=== PATIENT | female | born 1950 | race Caucasian/White ===

== ENCOUNTER 2018-03-09 12:56 | Inpatient (IN) ==
[2018-03-09 14:56] LABS: Hematocrit (blood only) 17.7 % (37-47); Hemoglobin 5.6 g/dL (12.0-16.0); Mean Corpuscular Hgb Conc 31.6 g/dL (32-36); Mean Corpuscular Volume 89.8 fL (80-100); Mean Platelet Volume 9.3 fL (7.4-10.4); Platelet Count 319 K/uL (130-400); RDW Coefficient of Variation 17.8 % (11.5-14.5); RDW Standard Deviation 57.9 fL (36.4-46.3); Red Blood Count 1.97 M/uL (4.2-5.4); White Blood Count 9.33 K/uL (4.8-10.8)
[2018-03-09 14:59] LABS: Alanine Aminotransferase 19 U/L (12-78); Aspartate Aminotransferase 11 U/L (15-37); BUN Creatinine Ratio 30.2 (10-20); Blood Urea Nitrogen 27 mg/dl (7-18); Calcium 8.4 mg/dl (8.5-10.1); Carbon Dioxide 24 mmol/L (21-32); Chloride 103 mmol/L (98-107); Creatinine Clr Calc Pharmacy 70.7 ml/min; Est GFR (African American) 79.9; Est GFR (Non-African American) 68.9; Glucose 253 mg/dl (70-99); Potassium 4.2 mmol/L (3.5-5.1); Sodium 136 mmol/L (136-145)
[2018-03-09 15:03] LABS: Albumin Globulin Ratio 0.9 (0.9-2); Alkaline Phosphatase 68 U/L (45-117); Bilirubin,Total 0.3 mg/dl (0.1-1); Globulin 3.3 gm/dl (2.5-4.0); Total Protein 6.3 gm/dl (6.4-8.2); Troponin I < 0.015 ng/ml (0-0.045)
[2018-03-09] MEDS ORDERED: SODIUM CHLORIDE 0.9% 250 ML IV PRN ×2 (15:13→19:04)
[2018-03-09 15:14] LABS: Basophils # (auto) 0.02 K/uL (0-0.2); Basophils % (auto) 0.2 %; Eosinophils # (auto) 0.04 K/uL (0-0.5); Eosinophils % (auto) 0.4 %; Hypochromasia Present; Immature Granulocytes # (auto) 0.04 K/uL (0.00-0.02); Immature Granulocytes % (auto) 0.4 %; Lymphocytes # (auto) 2.03 K/uL (1.2-3.4); Lymphocytes % (auto) 21.8 %; Monocytes # (auto) 0.68 K/uL (0.11-0.59); Monocytes % (auto) 7.3 %; Neutrophils # (auto) 6.52 K/uL (1.4-6.5); Neutrophils % (auto) 69.9 %; Polychromasia 1+
--- NOTE | 2018-03-09 15:31 | XRay Report ---
XR chest 1V portable HISTORY: 67 years-old Female Anemia acute anemia COMPARISON: None available TECHNIQUE: Portable AP view of the chest FINDINGS: Surgical clips project over the epigastric distribution. Cardiomediastinal and hilar silhouettes are within normal limits. There is no pneumothorax, pleural effusion, focal airspace consolidation or ove rt pulmonary edema. Degenerative changes noted about the shoulders and spine. Calcification of the th oracic aortic arch. IMPRESSION: No acute process. The above report was generated using voice recognition software. It may contain grammatical, syntax o r spelling errors. Electronically signed by: Kurt Schrader M.D. 03/09/2018 3:29 PM
--- NOTE | 2018-03-09 15:39 | Emergency Department Note ---
ED Visit Note Patient seen in conjunction with Dr. Interiano .
--- NOTE | 2018-03-09 17:07 | History & Physical Report ---
Date of Service March 09, 2018 Assessment & Plan (1) Upper GI bleed: This is a 67-year-old white female with significant past medical history of T2 DM, HLD, history of gastric bypass 2010, history of ovarian CA 2015 who presents to [facility] at the recommendation of her online marketing specialist secondary to abnormal lab work. Hemoglobin today was 6.1 in outpatient setting. technician terminal and repeater, Dr. Ro advised patient seek ED. She is traveling to [place] from [place], [place] for holidays. H/H on arrival was 5.6/17.7. FOBT +. She was ordered 3 units of PRBC for transfusion. -admit to telemetry -proceed with 3 units PRBC, with lasix 20mg IV in between unit 2 and 3 -currently hemodynamically stable -NPO after midnight, start D5 1/2 NS at 0000 12/25 -clear liquid diet until midnight -Protonix bolus/gtt -GI Dr. Shukla consulted -Hold ASA, plavix -H/H q4h -CMP in a.m. (2) Anemia: -Plan as above -H/H 5.6/17.7 -H/H q4hr -3 units PRBC ordered (3) Left carotid artery stenosis: -recently diagnosed, following Dr. Ro [facility] interventional cardiology -to undergo eventual intervention -recently placed on Plavix/ASA (plavix initiated 03/02, ASA initiated 02/23) -will hold plavix and ASA in setting of acute GIB and profound anemia -continue zetia (4) T2DM (type 2 diabetes mellitus): -A1C in a.m, patient notes last A1C 11/2017 6.8-7.0 -hold actos, glimepride -Lantus/Novolog per protocol -on lisinopril for renal protection (5) Elevated blood pressure reading: -blood pressure consistently 140-160 in ED -may be in setting of GIB/anxiety -she denies hx of HTN, on MADELYN for T2DM -monitor blood pressure accordingly, goal for patient is 130/80 given T2DM (6) HLD (hyperlipidemia): -continue zetia (7) DVT prophylaxis: -SCDS/TEDS -hold ASA/Plavix in setting of GIB Disposition: D/C to home when medically able Follow up: with PCP Dr. Carreno upon discharge and online marketing specialist Dr. Ro of [facility] Patient seen in collaboration with Dr. Reynolds, please see addendum History of Present Illness Chief Complaint: Abnormal blood work reported by manager occupational Primary Care Provider: UMANG CARRENO This is a 67-year-old white female with significant past medical history of T2 DM, HLD, history of gastric bypass 2010, history of ovarian CA 2015 who presents to [facility] at the recommendation of her online marketing specialist secondary to abnormal lab work. Patient resides in [place], [place] and has recently been followed by online marketing specialist Dr. Ro secondary to left carotid artery stenosis. She is currently undergoing workup for KATHARINE intervention. Approximately 1 week ago patient was placed on Plavix 75 mg daily, ASA 325 mg daily. After 2 days of low-dose aspirin her dose was reduced to 81 mg daily. Patient was in her normal state of health until 03/05 when she developed diarrhea times 2 days, noted stools to be, "dark." After development of diarrhea she began experiencing increasing fatigue, exhaustion with simple activity, SALDA[place]A, lightheadedness with standing, decreased appetite, melena. Due to symptoms she contact her manager occupational who ordered a CBC for her today. Her hemoglobin was noted to be 6.1 and she received a call from her manager occupational and urged her to seek ED. Patient currently is visiting family in [facility]. She denies any fever, chills, sweats, syncope, chest pain, palpitations, shortness breath at rest, hemoptysis, nausea, vomiting, abdominal pain, dysuria, increased urgency or frequency with urination, hematuria, hematochezia. is at bedside. Follows closely with her material reclaimer regularly given gastric bypass. No hx of EGD but colonoscopy was done 07/2017 WNL. Allergies Allergy/AdvReac Type Severity Reaction Status Date / Time Penicillins Allergy Swelling Unverified 03/09/18 14:50 of Lip/Tongue/Throat Wpxudux-Vrk-Dia Reductase Allergy Unknown Unverified 03/09/18 14:50 Inhibitor STEROID AdvReac Anxiety Uncoded 03/09/18 14:50 Home Medications Home Medications Medication Instructions Recorded Confirmed Type alpha lipoic acid 50 mg PO DAILY 03/09/18 03/09/18 History aspirin [Aspirin Low Dose] 81 mg PO DAILY 03/09/18 03/09/18 History cholecalciferol (vitamin D3) 1,000 unit PO DAILY 03/09/18 03/09/18 History [Vitamin D3] clopidogrel [Plavix] 75 mg PO DAILY 03/09/18 03/09/18 History ezetimibe [Zetia] 10 mg PO DAILY 03/09/18 03/09/18 History glimepiride 4 mg PO DAILY 03/09/18 03/09/18 History lisinopril 5 mg PO DAILY 03/09/18 03/09/18 History magnesium oxide 400 mg PO DAILY 03/09/18 03/09/18 History pioglitazone [Actos] 15 mg PO DAILY 03/09/18 03/09/18 History Past Med/Surg History Medical History Left carotid artery stenosis History of ovarian cancer (Chronic) 2016 s/p GENET BSO HLD (hyperlipidemia) (Chronic) T2DM (type 2 diabetes mellitus) (Chronic) Morbid obesity Ovarian cancer (Resolved) Surgical History History of partial thyroidectomy (Resolved) History of Carlos-en-Y gastric bypass (Chronic) History of total abdominal hysterectomy and bilateral salpingo-oophorectomy ( Resolved) History of arthroscopy of knee (Resolved) History of tonsillectomy and adenoidectomy (Resolved) History of cataract extraction (Resolved) Family History Other Family history non-contributory No history of gastrointestinal disorder Social History marital status: Current Living Situation: Spouse current occupational status: retired Other Information That Helps Us Care for You: No Feels Safe at Home: Yes Safety Concerns: Feels Safe At This Time Smoking Status: Never smoker Hx Alcohol Use: No Hx Substance Use: No Beliefs That Will Affect Care: None Communication Ability: Effective Review of Systems All systems reviewed & are unremarkable except as noted in HPI & below Physical Exam 2 Vital Signs (Past 24 Hours): Last Vital Signs Temp 36.5 C 03/09/18 13:00 Pulse 87 03/09/18 15:30 Resp 16 03/09/18 15:30 BP 144/64 H 03/09/18 15:00 Pulse Ox 100 03/09/18 15:30 Physical Exam: Gen: WD/WN, F, NAD, sitting up in bed, pleasant, conversing easily Head: Normocephalic, Atraumatic Eyes: Sclera normal, no conjunctival injection, PERRLA, EOMI ENT: Gross hearing intact, normal pharynx, mucous membranes moist Neck: supple, no adenopathy, No JVD, no bruit, no thyromegaly, Resp: Clear to auscultation b/l, no wheeze, rales, rhonchi. Normal insp/exp effort, no accessory muscle use CV: Regular rate, regular rhythm, 2/6SEM noted best RUSB, no murmur, rub, gallop , or ectopy Abd: +BS x 4, soft, nontender, nondistended Musculoskeletal: moves extremities active rom x 4, strength intact, good tank hoop bender strength Extremities: No edema bilaterally, bilateral +2 pedal pulse Skin: warm, moist, no rash, negative turgor, cap refill < 2sec Neuro: Alert and oriented x 3, speech normal, good mood/affect, cran nerve 2-12 intact grossly : deferred Results & Data Laboratory Results Short CBC 03/09/18 Range/Units 13:25 WBC 9.33 (4.8-10.8) K/uL Hgb 5.6 L* (12.0-16.0) g/dL Hct 17.7 L* (37-47) % Plt Count 319 (130-400) K/uL BMP 03/09/18 13:25 Sodium 136 Potassium 4.2 Chloride 103 Carbon Dioxide 24 BUN 27 H Creatinine 0.88 Glucose 253 H Calcium 8.4 L Cardiac Enzymes 03/09/18 03/09/18 Range/Units 13:25 13:25 Troponin I < 0.015 Cancelled (0-0.045) ng/ml Liver Function 03/09/18 Range/Units 13:25 Total Bilirubin 0.3 (0.1-1) mg/dl AST 11 L (15-37) U/L ALT 19 (12-78) U/L Alkaline Phosphatase 68 (45-117) U/L Albumin 3.0 L (3.4-5.0) gm/dl Diagnostic Findings CXR: IMPRESSION: No acute process. Code Status & VTE Plan Code Status Full Code VTE Prophylaxis Plan VTE Prophylaxis will be ordered: Yes Reason for no VTE drug order: Contraindicated Supervising Physician Co-Signing Physician Notes delayed entry date of service 03/09/18 Attending Addendum: care coordinated with LILI Reyes please refer to her notes for full details, I agree with her notes patient seen and examined, records reviewed by myself as well on exam, patient seen resting in bed, comfortable, in good spirits states she feels fine overall denies active dyspnea, chest pain, dizziness, nausea no other symptoms VS noted and reviewed oriented x 3, not in distress, speaks in sentences with no effort nor accessory muscle use normal rate, regular rhythm, no murmurs clear breath sounds bilaterally non distended, soft, nontender no bipedal edema, erythema, warmth no neuro deficits Hg 5.6 Crea 0.88 ASSESSMENT AND PLAN PROFOUND ANEMIA r/o GI bleed in the setting of ASA and Plavix use history of Gastric Bypass Surgery -- 3 units of pRBC ordered Protonix drip NPO post midnight -- EGD tomorrow GI consulted HYPERTENSION -- continue Lisinopril monitor other diagnoses and plan of care as per LILI Jarquin notes Clarence Reynolds MD _ (1) T2DM (type 2 diabetes mellitus) Diabetes mellitus complication status: without complication Diabetes mellitus manager intermediate insulin use: without intermediate use Qualified Code(s): E11.9 - Type 2 diabetes mellitus without complications (2) Anemia Anemia type: other cause Other causes of anemia: acute posthemorrhagic Qualified Code(s): D62 - Acute posthemorrhagic anemia (3) HLD (hyperlipidemia) Hyperlipidemia type: unspecified Qualified Code(s): E78.5 - Hyperlipidemia, unspecified
[2018-03-09] MEDS ORDERED: PANTOprazole 80 MG in DEXTROSE 5% 100 ML IV ONE ×2 (17:16→18:30)
[2018-03-09] MEDS ORDERED: PANTOPRAZOLE BOLUS/DRIP 1 EA IV STA (17:16)
[2018-03-09] MEDS ORDERED: FUROSEMIDE 40 MG/4 ML VIAL IV SCH (17:30)
[2018-03-09] MEDS ORDERED: PANTOprazole 40 MG in DEXTROSE 5% 100 ML IV SCH (17:30)
[2018-03-09] MEDS ORDERED: MAGNESIUM HYDROXIDE SUSP 30 ML UDC PO PRN (19:04)
[2018-03-09] MEDS ORDERED: CARBOHYDRATES FOR HYPOGLYCEMIA PO PRN (19:04)
[2018-03-09] MEDS ORDERED: ALUMINUM/MAGNESIUM SUSP 30 ML UDC PO PRN (19:04)
[2018-03-09] MEDS ORDERED: ACETAMINOPHEN 325 MG TAB PO PRN (19:04)
[2018-03-09] MEDS ORDERED: ONDANSETRON INJ 2 MG/ML 2 ML VIAL IV PRN (19:04)
[2018-03-09] MEDS ORDERED: GLUCAGON FOR INJ 1 MG VIAL SQ PRN (19:04)
[2018-03-09] MEDS ORDERED: GLUCOSE 40% GEL 15 GM TUBE PO PRN (19:04)
[2018-03-09] MEDS ORDERED: DEXTROSE 50% 50 ML SYRINGE IV PRN (19:04)
[2018-03-09] MEDS ORDERED: POLYETHYLENE (MIRALAX) 17 GM PACK PO PRN (19:04)
[2018-03-09] MEDS ORDERED: GLUCOSE 10 TABS/TUBE PO PRN (19:04)
[2018-03-09] MEDS: PANTOprazole 40 MG in DEXTROSE 5% 100 ML IV SCH ×2 (19:18→23:55)
[2018-03-09] MEDS: INSULIN ASPART 100 UNITS/ML 3 ML PEN SC SCH ×2 (20:36→22:57)
[2018-03-09] MEDS: INSULIN GLARGINE SOLOSTAR 100 UNITS/ML 3 ML PEN SC SCH (20:39)
[2018-03-09] MEDS ORDERED: PANTOprazole 40 MG in SYRINGE 0 ML IV SCH (21:00)
[2018-03-10] MEDS ORDERED: D5W AND 1/2NSS 1,000 ML IV SCH
--- NOTE | 2018-03-10 02:15 | Emergency Department Note ---
Entered by Judah Contreras acting as a scribe for Gerardo Interiano MD History of Present Illness General Chief complaint: Abnormal Labs/Diagnostic Testing Stated complaint: LOW HEMOGLOBIN Time Seen by Provider: 03/09/18 14:00 Source: patient Limitations: no limitations History of Present Illness Location: head Pain Consistency: + constant Maximum Pain Intensity: 0 Quality: + constant Relieved By: + movement Associated symptoms: + loss of appetite, + weakness and + other (diarrhea) The patient is a 67 year old female who presents to the Emergency Room with complaints of weakness. The patient states she has been tired, has SOB, and her appetite has been down. She states she went to her PCP and got blood-work done. She states her PCP told her she had low hemoglobin levels and should visit the ED. She states she had diarrhea 4 days ago . She notes her last bowel movement was 2 days ago and it was small and darker than normal. The patient states she has been getting really tired when she moves around. The patient notes she has a history of ovarian cancer. She states she had left coronary artery stenosis in November. The patient states she has been put on baby aspirin and Plavix recently. Home Medications Home Medications Medication Instructions Recorded Confirmed Type alpha lipoic acid 50 mg PO DAILY 03/09/18 03/09/18 History aspirin [Aspirin Low Dose] 81 mg PO DAILY 03/09/18 03/09/18 History cholecalciferol (vitamin D3) 1,000 unit PO DAILY 03/09/18 03/09/18 History [Vitamin D3] clopidogrel [Plavix] 75 mg PO DAILY 03/09/18 03/09/18 History ezetimibe [Zetia] 10 mg PO DAILY 03/09/18 03/09/18 History glimepiride 4 mg PO DAILY 03/09/18 03/09/18 History lisinopril 5 mg PO DAILY 03/09/18 03/09/18 History magnesium oxide 400 mg PO DAILY 03/09/18 03/09/18 History pioglitazone [Actos] 15 mg PO DAILY 03/09/18 03/09/18 History Allergies Allergy/AdvReac Type Severity Reaction Status Date / Time Penicillins Allergy Swelling Unverified 03/09/18 14:50 of Lip/Tongue/Throat Gsyqlxs-Amu-Url Reductase Allergy Unknown Unverified 03/09/18 14:50 Inhibitor STEROID AdvReac Anxiety Uncoded 03/09/18 14:50 Past Med/Surg History Medical History Left carotid artery stenosis History of ovarian cancer (Chronic) 2016 s/p GENET BSO HLD (hyperlipidemia) (Chronic) T2DM (type 2 diabetes mellitus) (Chronic) Morbid obesity Ovarian cancer (Resolved) Surgical History History of partial thyroidectomy (Resolved) History of Carlos-en-Y gastric bypass (Chronic) History of total abdominal hysterectomy and bilateral salpingo-oophorectomy ( Resolved) History of arthroscopy of knee (Resolved) History of tonsillectomy and adenoidectomy (Resolved) History of cataract extraction (Resolved) Family History Other Family history non-contributory No history of gastrointestinal disorder Social History marital status: Current Living Situation: Spouse current occupational status: retired Other Information That Helps Us Care for You: No Feels Safe at Home: Yes Safety Concerns: Feels Safe At This Time Smoking Status: Never smoker Hx Alcohol Use: No Hx Substance Use: No Beliefs That Will Affect Care: None Communication Ability: Effective Review of Systems See HPI for pertinent positives & negatives. and A total of 10 systems reviewed and were otherwise negative Physical Exam Vital Signs Vital Signs - 24 hr 03/09/18 13:00 03/09/18 13:47 03/09/18 13:49 Temperature 36.5 C Temperature Source Oral Sepsis Recent Fever Within 48 Hours No Sepsis New/Unexplained Change in Mental Status No Sepsis Action Taken by Nursing No Action Required Pulse Rate 80 87 89 Pulse Rate [Left Finger] Pulse Rhythm Pulse Strength Respiratory Rate 22 20 16 Respiratory Effort / Characteristics Respiratory Depth Respiratory Pattern Blood Pressure 151/62 H 161/72 H Blood Pressure [Left Arm] Blood Pressure [Right Arm] Blood Pressure Mean 91 101 Blood Pressure Mean [Left Arm] Blood Pressure Mean [Right Arm] Blood Pressure Position Blood Pressure Position [Right Arm] Pulse Oximetry 98 100 100 Oxygen Delivery Method Room Air 03/09/18 14:00 03/09/18 14:01 03/09/18 14:30 Temperature Temperature Source Sepsis Recent Fever Within 48 Hours Sepsis New/Unexplained Change in Mental Status Sepsis Action Taken by Nursing Pulse Rate 84 85 92 H Pulse Rate [Left Finger] Pulse Rhythm Pulse Strength Respiratory Rate 14 14 19 Respiratory Effort / Characteristics Respiratory Depth Respiratory Pattern Blood Pressure 134/71 Blood Pressure [Left Arm] Blood Pressure [Right Arm] Blood Pressure Mean 92 Blood Pressure Mean [Left Arm] Blood Pressure Mean [Right Arm] Blood Pressure Position Blood Pressure Position [Right Arm] Pulse Oximetry 100 100 99 Oxygen Delivery Method 03/09/18 14:31 03/09/18 14:32 03/09/18 14:58 Temperature Temperature Source Sepsis Recent Fever Within 48 Hours Sepsis New/Unexplained Change in Mental Status Sepsis Action Taken by Nursing Pulse Rate 92 H 91 H 89 Pulse Rate [Left Finger] Pulse Rhythm Pulse Strength Respiratory Rate 16 13 16 Respiratory Effort / Characteristics Respiratory Depth Respiratory Pattern Blood Pressure 154/89 H 147/71 H Blood Pressure [Left Arm] Blood Pressure [Right Arm] Blood Pressure Mean 110 96 Blood Pressure Mean [Left Arm] Blood Pressure Mean [Right Arm] Blood Pressure Position Blood Pressure Position [Right Arm] Pulse Oximetry 99 100 99 Oxygen Delivery Method 03/09/18 15:00 03/09/18 15:30 03/09/18 17:12 Temperature 37 C Temperature Source Oral Sepsis Recent Fever Within 48 Hours Sepsis New/Unexplained Change in Mental Status Sepsis Action Taken by Nursing Pulse Rate 86 87 88 Pulse Rate [Left Finger] Pulse Rhythm Regular Pulse Strength Normal Respiratory Rate 14 16 17 Respiratory Effort / Characteristics Respiratory Depth Respiratory Pattern Blood Pressure 144/64 H 153/68 H Blood Pressure [Left Arm] Blood Pressure [Right Arm] Blood Pressure Mean 90 96 Blood Pressure Mean [Left Arm] Blood Pressure Mean [Right Arm] Blood Pressure Position Lying Blood Pressure Position [Right Arm] Pulse Oximetry 99 100 99 Oxygen Delivery Method 03/09/18 17:23 03/09/18 17:31 03/09/18 17:55 Temperature 36.9 C 37 C Temperature Source Oral Oral Sepsis Recent Fever Within 48 Hours Sepsis New/Unexplained Change in Mental Status Sepsis Action Taken by Nursing Pulse Rate 87 88 Pulse Rate [Left Finger] Pulse Rhythm Regular Regular Pulse Strength Normal Normal Respiratory Rate 17 16 Respiratory Effort / Characteristics Respiratory Depth Respiratory Pattern Blood Pressure 141/65 H 135/72 Blood Pressure [Left Arm] Blood Pressure [Right Arm] Blood Pressure Mean 90 93 Blood Pressure Mean [Left Arm] Blood Pressure Mean [Right Arm] Blood Pressure Position Lying Lying Blood Pressure Position [Right Arm] Pulse Oximetry 98 99 Oxygen Delivery Method Room Air 03/09/18 18:02 03/09/18 18:23 03/09/18 18:35 Temperature 37.1 C 37.2 C 37.2 C Temperature Source Oral Oral Oral Sepsis Recent Fever Within 48 Hours Sepsis New/Unexplained Change in Mental Status Sepsis Action Taken by Nursing Pulse Rate 88 Pulse Rate [Left Finger] Pulse Rhythm Regular Pulse Strength Normal Respiratory Rate 17 20 Respiratory Effort / Characteristics Non-Labored Non-Labored Respiratory Depth Normal Normal Respiratory Pattern Regular Regular Blood Pressure 137/59 L Blood Pressure [Left Arm] Blood Pressure [Right Arm] Blood Pressure Mean 85 Blood Pressure Mean [Left Arm] Blood Pressure Mean [Right Arm] Blood Pressure Position Lying Blood Pressure Position [Right Arm] Pulse Oximetry 100 98 98 Oxygen Delivery Method Room Air Room Air 03/09/18 19:15 03/09/18 19:16 03/09/18 19:30 Temperature 37.2 C 37.4 C Temperature Source Oral Oral Sepsis Recent Fever Within 48 Hours Sepsis New/Unexplained Change in Mental Status Sepsis Action Taken by Nursing Pulse Rate 95 H 83 102 H Pulse Rate [Left Finger] Pulse Rhythm Pulse Strength Respiratory Rate 16 16 Respiratory Effort / Characteristics Respiratory Depth Respiratory Pattern Blood Pressure 130/72 120/70 Blood Pressure [Left Arm] Blood Pressure [Right Arm] Blood Pressure Mean 91 86 Blood Pressure Mean [Left Arm] Blood Pressure Mean [Right Arm] Blood Pressure Position Lying Blood Pressure Position [Right Arm] Pulse Oximetry 100 99 Oxygen Delivery Method 03/09/18 20:42 03/09/18 20:56 03/09/18 21:19 Temperature 37.1 C 37 C 37.2 C Temperature Source Oral Oral Oral Sepsis Recent Fever Within 48 Hours Sepsis New/Unexplained Change in Mental Status Sepsis Action Taken by Nursing Pulse Rate 87 81 Pulse Rate [Left Finger] 82 Pulse Rhythm Pulse Strength Respiratory Rate 16 16 16 Respiratory Effort / Characteristics Non-Labored Respiratory Depth Normal Respiratory Pattern Blood Pressure 114/51 L 122/67 Blood Pressure [Left Arm] 138/75 Blood Pressure [Right Arm] Blood Pressure Mean 72 85 Blood Pressure Mean [Left Arm] 96 Blood Pressure Mean [Right Arm] Blood Pressure Position Lying Blood Pressure Position [Right Arm] Pulse Oximetry 100 100 Oxygen Delivery Method Room Air 03/09/18 21:34 12/24/18 22:04 03/09/18 22:05 Temperature 37.1 C 37.3 C 37.2 C Temperature Source Oral Oral Oral Sepsis Recent Fever Within 48 Hours Sepsis New/Unexplained Change in Mental Status Sepsis Action Taken by Nursing Pulse Rate 87 77 84 Pulse Rate [Left Finger] Pulse Rhythm Pulse Strength Respiratory Rate 20 16 18 Respiratory Effort / Characteristics Respiratory Depth Respiratory Pattern Blood Pressure 138/71 118/67 127/67 Blood Pressure [Left Arm] Blood Pressure [Right Arm] Blood Pressure Mean 93 84 87 Blood Pressure Mean [Left Arm] Blood Pressure Mean [Right Arm] Blood Pressure Position Lying Lying Blood Pressure Position [Right Arm] Pulse Oximetry 98 100 98 Oxygen Delivery Method 03/09/18 22:30 03/09/18 23:10 03/10/18 00:11 Temperature 36.9 C 36.8 C Temperature Source Oral Oral Sepsis Recent Fever Within 48 Hours Sepsis New/Unexplained Change in Mental Status Sepsis Action Taken by Nursing Pulse Rate 80 84 Pulse Rate [Left Finger] 76 Pulse Rhythm Pulse Strength Respiratory Rate 18 19 Respiratory Effort / Characteristics Respiratory Depth Respiratory Pattern Blood Pressure 130/68 Blood Pressure [Left Arm] Blood Pressure [Right Arm] 122/56 L Blood Pressure Mean 88 Blood Pressure Mean [Left Arm] Blood Pressure Mean [Right Arm] 78 Blood Pressure Position Lying Blood Pressure Position [Right Arm] Lying Pulse Oximetry 96 98 Oxygen Delivery Method Room Air 03/10/18 00:23 03/10/18 00:38 03/10/18 00:54 Temperature 37.2 C 36.8 C 37 C Temperature Source Oral Oral Oral Sepsis Recent Fever Within 48 Hours Sepsis New/Unexplained Change in Mental Status Sepsis Action Taken by Nursing Pulse Rate 84 86 85 Pulse Rate [Left Finger] Pulse Rhythm Pulse Strength Respiratory Rate 18 16 16 Respiratory Effort / Characteristics Respiratory Depth Respiratory Pattern Blood Pressure 138/70 130/68 136/70 Blood Pressure [Left Arm] Blood Pressure [Right Arm] Blood Pressure Mean 92 88 92 Blood Pressure Mean [Left Arm] Blood Pressure Mean [Right Arm] Blood Pressure Position Lying Lying Blood Pressure Position [Right Arm] Pulse Oximetry 99 99 98 Oxygen Delivery Method 03/10/18 00:56 Temperature 37.3 C Temperature Source Oral Sepsis Recent Fever Within 48 Hours Sepsis New/Unexplained Change in Mental Status Sepsis Action Taken by Nursing Pulse Rate 82 Pulse Rate [Left Finger] Pulse Rhythm Pulse Strength Respiratory Rate 18 Respiratory Effort / Characteristics Respiratory Depth Respiratory Pattern Blood Pressure 107/66 Blood Pressure [Left Arm] Blood Pressure [Right Arm] Blood Pressure Mean 79 Blood Pressure Mean [Left Arm] Blood Pressure Mean [Right Arm] Blood Pressure Position Lying Blood Pressure Position [Right Arm] Pulse Oximetry 99 Oxygen Delivery Method GENERAL: Awake, alert, fatigued-appearing, in no distress HENT: Normocephalic, atraumatic. Oropharynx with dry mucous membranes and otherwise unremarkable. EYES: Normal conjunctiva. Sclera non-icteric. NECK: Supple. No nuchal rigidity. FROM. No JVD. RESPIRATORY: Clear to auscultation. CARDIAC: Regular rate, normal rhythm. Extremities warm and well perfused. Pulses equal. Small heart murmur systolic and chronic. ABDOMEN: Soft, non-distended. No tenderness to palpation. No rebound or guarding. No masses. RECTAL: Melena, guaiac positive. MUSCULOSKELETAL: Chest examination reveals no tenderness. The back is symmetrical on inspection without obvious abnormality. There is no CVA tenderness to palpation. No joint edema. LOWER EXTREMITIES: Calves are equal size bilaterally and non-tender. No edema. No discoloration. NEURO: Normal sensorium. No sensory or motor deficits noted. SKIN: No rash or jaundice noted. Course 1400: Past medical records reviewed. The patient was evaluated in room C8, and a complete history and physical examination were performed with my resident, Dr. Aguilar. 1535: I reviewed the patient's case with Dr. Milligan. He will evaluate the patient for further management. Administered Medications Furosemide (Lasix) 20 mg IV ONCE BILL Stop: 04/08/18 17:29 Last Admin: 03/10/18 00:01 Dose: 20 mg Pantoprazole Sodium 40 mg/ (Dextrose) 100 mls @ 20 mls/hr IV Q5H BILL Stop: 04/08/18 18:47 Last Admin: 03/09/18 23:55 Dose: 20 mls/hr Infusion: 03/09/18 23:55 Dose: 20 mls/hr Admin: 03/09/18 19:18 Dose: 20 mls/hr Insulin Aspart (Novolog Flexpen) 0 units SC ACHS BILL Stop: 04/08/18 19:03 Last Admin: 03/09/18 22:57 Dose: 1 units Admin: 03/09/18 20:36 Dose: 4 units Insulin Glargine (Lantus Solostar Pen) 5 units SC Q12H BILL Stop: 04/08/18 20:59 Last Admin: 03/09/18 20:39 Dose: 5 units Discontinued Medications Pantoprazole Sodium 40 mg/ (Syringe) 10 mls @ 5 mls/min IV BID BILL Stop: 04/08/18 20:59 Last Admin: 03/09/18 17:12 Dose: 5 mls/min Pantoprazole Sodium 80 mg/ (Dextrose) 120 mls @ 400 mls/hr IV NOW ONE Stop: 03/09/18 17:33 Last Infusion: 03/09/18 19:22 Dose: 0 mls/hr Admin: 03/09/18 18:46 Dose: 400 mls/hr Pantoprazole Sodium 80 mg/ (Dextrose) 120 mls @ 400 mls/hr IV NOW ONE Stop: 03/09/18 18:47 Last Admin: 03/09/18 19:39 Dose: Not Given Medical Decision Making Differential Diagnosis Differential diagnosis: Etiologies such as esophagitis, variceal bleed, [place], [place] tear, gastritis, peptic ulcer disease, AVM, inflammatory bowel disease, ischemia, diverticulosis, colitis, malignancy, coagulopathy, thrombocytopenia, fissure, hemorrhoid, epistaxis , as well as others were entertained. Medical Records Attestation: I reviewed the patient's medical records. Home Medications Current Medication List: was personally reviewed by me Laboratory Data Attestation: I reviewed the patient's lab results. Result diagrams: 03/09/18 13:25 03/09/18 13:25 Lab Results 03/09/18 03/09/18 03/09/18 Range/Units 13:25 13:25 13:25 WBC 9.33 (4.8-10.8) K/uL RBC 1.97 L (4.2-5.4) M/uL Hgb 5.6 L* (12.0-16.0) g/dL Hct 17.7 L* (37-47) % MCV 89.8 (80-100) fL MCH 28.4 (25-34) pg MCHC 31.6 L (32-36) g/dL RDW Std Deviation 57.9 H (36.4-46.3) fL RDW Coeff of Kristy 17.8 H (11.5-14.5) % Plt Count 319 (130-400) K/uL MPV 9.3 (7.4-10.4) fL Immature Gran % (Auto) 0.4 % Neut % (Auto) 69.9 % Lymph % (Auto) 21.8 % Kimball % (Auto) 7.3 % Eos % (Auto) 0.4 % Baso % (Auto) 0.2 % Immature Gran # (Auto) 0.04 H (0.00-0.02) K/uL Neut # (Auto) 6.52 H (1.4-6.5) K/uL Lymph # (Auto) 2.03 (1.2-3.4) K/uL Kimball # (Auto) 0.68 H (0.11-0.59) K/uL Eos # (Auto) 0.04 (0-0.5) K/uL Baso # (Auto) 0.02 (0-0.2) K/uL Polychromasia 1+ Hypochromasia Present Sodium 136 (136-145) mmol/L Potassium 4.2 (3.5-5.1) mmol/L Chloride 103 (98-107) mmol/L Carbon Dioxide 24 (21-32) mmol/L Anion Gap 9.0 (3-11) BUN 27 H (7-18) mg/dl Creatinine 0.88 (0.6-1.2) mg/dl Est Cr Clr Drug Dosing 70.7 ml/min Est GFR ( Amer) 79.9 Est GFR (Non-Af Amer) 68.9 BUN/Creatinine Ratio 30.2 H (10-20) Glucose 253 H (70-99) mg/dl POC Glucose (70-99) Calcium 8.4 L (8.5-10.1) mg/dl Total Bilirubin 0.3 (0.1-1) mg/dl AST 11 L (15-37) U/L ALT 19 (12-78) U/L Alkaline Phosphatase 68 (45-117) U/L Troponin I < 0.015 Cancelled (0-0.045) ng/ml Total Protein 6.3 L (6.4-8.2) gm/dl Albumin 3.0 L (3.4-5.0) gm/dl Globulin 3.3 (2.5-4.0) gm/dl Albumin/Globulin Ratio 0.9 (0.9-2) Blood Type Blood Type Recheck Antibody Screen Crossmatch 03/09/18 03/09/18 03/09/18 Range/Units 14:51 15:18 15:24 WBC (4.8-10.8) K/uL RBC (4.2-5.4) M/uL Hgb (12.0-16.0) g/dL Hct (37-47) % MCV (80-100) fL MCH (25-34) pg MCHC (32-36) g/dL RDW Std Deviation (36.4-46.3) fL RDW Coeff of Kristy (11.5-14.5) % Plt Count (130-400) K/uL MPV (7.4-10.4) fL Immature Gran % (Auto) % Neut % (Auto) % Lymph % (Auto) % Kimball % (Auto) % Eos % (Auto) % Baso % (Auto) % Immature Gran # (Auto) (0.00-0.02) K/uL Neut # (Auto) (1.4-6.5) K/uL Lymph # (Auto) (1.2-3.4) K/uL Kimball # (Auto) (0.11-0.59) K/uL Eos # (Auto) (0-0.5) K/uL Baso # (Auto) (0-0.2) K/uL Polychromasia Hypochromasia Sodium (136-145) mmol/L Potassium (3.5-5.1) mmol/L Chloride (98-107) mmol/L Carbon Dioxide (21-32) mmol/L Anion Gap (3-11) BUN (7-18) mg/dl Creatinine (0.6-1.2) mg/dl Est Cr Clr Drug Dosing ml/min Est GFR ( Amer) Est GFR (Non-Af Amer) BUN/Creatinine Ratio (10-20) Glucose (70-99) mg/dl POC Glucose (70-99) Calcium (8.5-10.1) mg/dl Total Bilirubin (0.1-1) mg/dl AST (15-37) U/L ALT (12-78) U/L Alkaline Phosphatase (45-117) U/L Troponin I (0-0.045) ng/ml Total Protein (6.4-8.2) gm/dl Albumin (3.4-5.0) gm/dl Globulin (2.5-4.0) gm/dl Albumin/Globulin Ratio (0.9-2) Blood Type Cancelled A Negative Blood Type Recheck A Negative Antibody Screen Cancelled NEGATIVE Crossmatch See Detail 03/09/18 03/09/18 Range/Units 20:24 22:35 WBC (4.8-10.8) K/uL RBC (4.2-5.4) M/uL Hgb (12.0-16.0) g/dL Hct (37-47) % MCV (80-100) fL MCH (25-34) pg MCHC (32-36) g/dL RDW Std Deviation (36.4-46.3) fL RDW Coeff of Kristy (11.5-14.5) % Plt Count (130-400) K/uL MPV (7.4-10.4) fL Immature Gran % (Auto) % Neut % (Auto) % Lymph % (Auto) % Kimball % (Auto) % Eos % (Auto) % Baso % (Auto) % Immature Gran # (Auto) (0.00-0.02) K/uL Neut # (Auto) (1.4-6.5) K/uL Lymph # (Auto) (1.2-3.4) K/uL Kimball # (Auto) (0.11-0.59) K/uL Eos # (Auto) (0-0.5) K/uL Baso # (Auto) (0-0.2) K/uL Polychromasia Hypochromasia Sodium (136-145) mmol/L Potassium (3.5-5.1) mmol/L Chloride (98-107) mmol/L Carbon Dioxide (21-32) mmol/L Anion Gap (3-11) BUN (7-18) mg/dl Creatinine (0.6-1.2) mg/dl Est Cr Clr Drug Dosing ml/min Est GFR ( Amer) Est GFR (Non-Af Amer) BUN/Creatinine Ratio (10-20) Glucose (70-99) mg/dl POC Glucose 281 H 174 H (70-99) Calcium (8.5-10.1) mg/dl Total Bilirubin (0.1-1) mg/dl AST (15-37) U/L ALT (12-78) U/L Alkaline Phosphatase (45-117) U/L Troponin I (0-0.045) ng/ml Total Protein (6.4-8.2) gm/dl Albumin (3.4-5.0) gm/dl Globulin (2.5-4.0) gm/dl Albumin/Globulin Ratio (0.9-2) Blood Type Blood Type Recheck Antibody Screen Crossmatch Imaging Data Radiologist's Impression: Radiology results as stated below per my review and the radiologist's interpretation: XR chest 1V portable HISTORY: 67 years-old Female Anemia acute anemia COMPARISON: None available TECHNIQUE: Portable AP view of the chest FINDINGS: Surgical clips project over the epigastric distribution. Cardiomediastinal and hilar silhouettes are within normal limits. There is no pneumothorax, pleural effusion, focal airspace consolidation or overt pulmonary edema. Degenerative changes noted about the shoulders and spine. Calcification of the thoracic aortic arch. IMPRESSION: No acute process. The above report was generated using voice recognition software. It may contain grammatical, syntax or spelling errors. Electronically signed by: Kurt Schrader M.D. 03/09/2018 3:29 PM ECG Data Attestation: I personally reviewed and interpreted this ECG as follows: Indication: other (abnormal labs) Rate (beats per minute): 87 Rhythm: normal sinus Findings: + other (normal axis, nonspecific intraventricular conduction delay); no acute ischemic change Blood Pressure Blood Pressure Findings: Elevated blood pressure Blood Pressure Disposition: further management by hospitalist LIN Narrative The patient is a pleasant 67 y/o woman with a pmhx of remote gastric bypass, recent diagnosis of carotid stenosis who presents to the emergency department after having Hbg of 6 on outpatient lab testing in preparation of upcoming procedure for her carotid stenosis in the setting of being started on Plavix last week per HPI. On arrival the patient is fatigued appearing but in NAD, AFVSS. Patient appears clinically dry. Abd is non-tender. Rectal exam per resident, Dr. Aguilar, with melena that is guiac positive. EKG without evidence of acute ischemia but without prior for comparison. CXR negative for free air. Anemia confirmed with Hbg 5.6. BUN 27. Chemistry without acidosis. Troponin negative. Type and cross ordered for 3 units PRBCs. Given IV protonix. Dr. Aguilar discussed the case with Hay[facility] Kaur, [facility], who will evaluated the patient for admission and additional d/w [facility] who is aware of patient. This patient was managed with the assistance of resident, Dr. Aguilar. I discussed the case with the resident, examined the patient, and confirm the findings and plan as documented in this note. Impression & Plan Upper GI bleed Critical Care Time I have personally spent greater than 35 minutes of critical care time in the direct management of this patient. This includes bedside care, interpretation of diagnostic studies, and testing, discussion with consultants, patient, and family members, and other required patient management activities. This 35 minutes is in excess of all separately billable procedures. Critical Care Time: Yes Total Critical Care Time: 35 Discharge Plan Visit Data *Final* Discharge Date/Time: 03/09/18 17:55 Chief Complaint: Abnormal Labs/Diagnostic Testing Stated Complaint: LOW HEMOGLOBIN ED Provider: Gerardo Interiano Discharge Problem: Upper GI bleed Patient Disposition: Admitted As Inpatient Discharge Instructions Interventions: ED Discharge Assessment Last Done: 03/09/18 17:55 The scribe's documentation has been prepared under my direction and personally reviewed by me in its entirety. I confirm that the note above accurately reflects all work, treatment, procedures, and medical decision making performed by me.
[2018-03-10] MEDS: PANTOprazole 40 MG in DEXTROSE 5% 100 ML IV SCH ×2 (05:52→10:21)
[2018-03-10 07:47] LABS: Hematocrit (blood only) 26.6 % (37-47); Hemoglobin 8.9 g/dL (12.0-16.0); Mean Corpuscular Hgb Conc 33.5 g/dL (32-36); Mean Corpuscular Volume 87.2 fL (80-100); Mean Platelet Volume 9.2 fL (7.4-10.4); Nucleated RBC # (auto) 0.02 K/uL (0-0); Nucleated RBC % (auto) 0.3 %; Platelet Count 256 K/uL (130-400); RDW Coefficient of Variation 16.5 % (11.5-14.5); RDW Standard Deviation 51.6 fL (36.4-46.3); Red Blood Count 3.05 M/uL (4.2-5.4); White Blood Count 6.52 K/uL (4.8-10.8)
[2018-03-10] MEDS: INSULIN GLARGINE SOLOSTAR 100 UNITS/ML 3 ML PEN SC SCH ×2 (08:14→21:31)
[2018-03-10] MEDS: INSULIN ASPART 100 UNITS/ML 3 ML PEN SC SCH ×4 (08:14→21:33)
[2018-03-10] MEDS: MAGNESIUM OXIDE 400 MG TAB PO SCH (08:15)
[2018-03-10] MEDS: CHOLECALCIFEROL 1,000 UNITS TAB PO SCH (08:15)
[2018-03-10] MEDS: EZETIMIBE 10 MG TABLET PO SCH (08:15)
[2018-03-10] MEDS: LISINOPRIL 5 MG TAB PO SCH (08:15)
[2018-03-10 08:19] LABS: Albumin Globulin Ratio 0.9 (0.9-2); Albumin Level 2.9 gm/dl (3.4-5.0); BUN Creatinine Ratio 20.2 (10-20); Bilirubin,Total 0.8 mg/dl (0.1-1); Calcium 8.5 mg/dl (8.5-10.1); Creatinine Clr Calc Pharmacy 74.6 ml/min; Est GFR (Non-African American) 75.1; Globulin 3.1 gm/dl (2.5-4.0); Potassium 3.9 mmol/L (3.5-5.1)
[2018-03-10 11:20] LABS: Hematocrit (blood only) 28.5 % (37-47); Hemoglobin 9.4 g/dL (12.0-16.0); Mean Corpuscular Volume 87.7 fL (80-100); Mean Platelet Volume 9.3 fL (7.4-10.4); Platelet Count 288 K/uL (130-400); RDW Coefficient of Variation 16.7 % (11.5-14.5); RDW Standard Deviation 52.3 fL (36.4-46.3); Red Blood Count 3.25 M/uL (4.2-5.4); White Blood Count 6.95 K/uL (4.8-10.8)
[2018-03-10] MEDS: ASPIRIN 81 MG ECTAB PO SCH (11:37)
--- NOTE | 2018-03-10 12:46 | Gastrointestinal Consultation ---
Date of Consultation March 10, 2018 History of Present Illness Attending Physician: Taylor Benitez MD 67 yo Female with PMh sig gastric bypass, recently dx'd with severe carotid stenosis and placed on ASA and plavix by rn patient services one week ago. Immediately prior to beginning ASA and plavix, she had a treadmill stress test; she had no cardiac ischemia, and reported no SALDAÑA. Shortly after beginning ASA and Plavix, she reports dark loose stool and marked SALDAÑA. She denies abd pain, dysphagia/GERD, BRBPR. She denies NSAIDs other than ASA. She has a h/o recent unremarkable cscopy for screening at OSH. She does not take iron supp. Her Hgb was 11 with MCV 89 in . On presentation, BP stable, BUN mildly increased, Hgb 5.6, normal MCV, rectal described as melenic stool. She is now s/p 3 U PRBC, VS remain stable, BUN normal, no BM since admission. Physical exam: Comfortable, obese, NAD HEENT: sclera are moist with visible vessles, mouth is moist, no SC LAD CV: RRR Resp: CTA Abd: soft NT deep palpation, ND, + BS Extrem: pale, 2+ radial pulses, no edema, no ecchymoses Labs/imaging reviewed. A/P: H/o RYGB, now with GIB shortly after ASA/Plavix - - Suspect anastamotic ulcer. She is not acutely bleeding. Will plan EGD tomorrow. - OK for ASA; benefits of antplt therapy likely outweigh risks. - No need PPI gtt; change to IV bolus PPI. - Clears. Follow Hgb; transfuse for goal Hgb 7-8. Allergies Allergy/AdvReac Type Severity Reaction Status Date / Time Penicillins Allergy Swelling Unverified 03/09/18 14:50 of Lip/Tongue/Throat Ozosato-Pym-Bsn Reductase Allergy Unknown Unverified 03/09/18 14:50 Inhibitor STEROID AdvReac Anxiety Uncoded 03/09/18 14:50 Home Medications Home Medications Medication Instructions Recorded Confirmed Type alpha lipoic acid 50 mg PO DAILY 03/09/18 03/09/18 History aspirin [Aspirin Low Dose] 81 mg PO DAILY 03/09/18 03/09/18 History cholecalciferol (vitamin D3) 1,000 unit PO DAILY 03/09/18 03/09/18 History [Vitamin D3] clopidogrel [Plavix] 75 mg PO DAILY 03/09/18 03/09/18 History ezetimibe [Zetia] 10 mg PO DAILY 03/09/18 03/09/18 History glimepiride 4 mg PO DAILY 03/09/18 03/09/18 History lisinopril 5 mg PO DAILY 03/09/18 03/09/18 History magnesium oxide 400 mg PO DAILY 03/09/18 03/09/18 History pioglitazone [Actos] 15 mg PO DAILY 03/09/18 03/09/18 History Patient History Medical History Left carotid artery stenosis History of ovarian cancer (Chronic) 2016 s/p GENET BSO HLD (hyperlipidemia) (Chronic) T2DM (type 2 diabetes mellitus) (Chronic) Morbid obesity Ovarian cancer (Resolved) Surgical History History of partial thyroidectomy (Resolved) History of Carlos-en-Y gastric bypass (Chronic) History of total abdominal hysterectomy and bilateral salpingo-oophorectomy ( Resolved) History of arthroscopy of knee (Resolved) History of tonsillectomy and adenoidectomy (Resolved) History of cataract extraction (Resolved) Family History Other Family history non-contributory No history of gastrointestinal disorder Social History marital status: Current Living Situation: Spouse current occupational status: retired Other Information That Helps Us Care for You: No Feels Safe at Home: Yes Safety Concerns: Feels Safe At This Time Smoking Status: Never smoker Hx Alcohol Use: No Hx Substance Use: No Beliefs That Will Affect Care: None Communication Ability: Effective Physical Exam 2 Vital Signs (Past 24 Hours): Last Vital Signs Temp 37 C 03/10/18 11:25 Pulse 83 03/10/18 11:25 Resp 18 03/10/18 11:25 BP 125/67 03/10/18 11:25 Pulse Ox 97 03/10/18 11:25 Physical Exam: Obese, pleasant, NAD
[2018-03-10 14:56] LABS: Hemoglobin 8.9 g/dL (12.0-16.0); Mean Corpuscular Volume 87.7 fL (80-100); Platelet Count 269 K/uL (130-400); RDW Coefficient of Variation 16.8 % (11.5-14.5); RDW Standard Deviation 52.4 fL (36.4-46.3); Red Blood Count 3.08 M/uL (4.2-5.4); White Blood Count 6.48 K/uL (4.8-10.8)
--- NOTE | 2018-03-10 15:43 | Hospitalist Progress Note ---
Date of Service March 10, 2018 Assessment & Plan (1) Upper GI bleed: This is a 67-year-old white female with significant past medical history of T2 DM, HLD, history of gastric bypass 2010, history of ovarian CA 2015 who presents to [facility] at the recommendation of her sales development associate secondary to abnormal lab work. Hemoglobin today was 6.1 in outpatient setting. engine manager, Dr. Ro advised patient seek ED. She is traveling to [place] from [place], [place] for holidays. H/H on arrival was 5.6/17.7. FOBT +. She was ordered 3 units of PRBC for transfusion. Likely bleeding from upper GI secondary to anastomotic ulcer and/or peptic ulcer disease Clinically a lot better Received 3 units of PRBC Denies any symptoms Appreciate GI input and recommendation Continue Protonix drip and EGD tomorrow (2) Anemia: -Plan as above -H/H 5.6/17.7 -H/H q4hr -3 units PRBC ordered -Hemoglobin more than 9 this morning (3) Left carotid artery stenosis: -recently diagnosed, following Dr. Ro [facility] interventional cardiology -to undergo eventual intervention -recently placed on Plavix/ASA (plavix initiated 03/02, ASA initiated 02/23); on hold now -continue zetia (4) T2DM (type 2 diabetes mellitus): -A1C in a.m, patient notes last A1C 11/2017 6.8-7.0 -hold actos, glimepride -Lantus/Novolog per protocol -on lisinopril for renal protection- Hemoglobin A1c is pending (5) Elevated blood pressure reading: -blood pressure consistently 140-160 in ED -may be in setting of GIB/anxiety -she denies hx of HTN, on MADELYN for T2DM -monitor blood pressure accordingly, goal for patient is 130/80 given T2DM (6) HLD (hyperlipidemia): -continue zetia (7) DVT prophylaxis: -SCDS/TEDS -hold ASA/Plavix in setting of GIB Disposition: D/C to home when medically able Follow up: with PCP Dr. Hubbard upon discharge and sales development associate Dr. Ro of [facility] Subjective 67-year-old obese female with history of gastric bypass surgery and recent diagnosis of left carotid stenosis on aspirin and Plavix has been here with the increasing weakness and melena for the last few days. 03/10 Patient was seen and examined in telemetry unit She is a status post 3 unit of PRBC transfusion Has been feeling a lot better following transfusion Will have EGD tomorrow Physical Exam 2 Vital Signs (Past 24 Hours): Last Vital Signs Temp 37 C 03/10/18 11:25 Pulse 83 03/10/18 11:25 Resp 18 03/10/18 11:25 BP 125/67 03/10/18 11:25 Pulse Ox 97 03/10/18 11:25 Constitutional: WD/WN, vitals as above Respiratory: Auscultation: lungs clear to auscultation bilaterally and + diminished lung sounds Cardiovascular: Rate/Rhythm: regular rate and regular rhythm Heart Sounds: normal S1 and normal S2 Gastrointestinal (Abdomen): Benign, no epigastric tenderness, no organomegaly , bowel sounds present Results & Data Laboratory Results Short CBC 03/10/18 03/10/18 03/10/18 Range/Units 07:02 11:08 14:45 WBC 6.52 6.95 6.48 (4.8-10.8) K/uL Hgb 8.9 L D 9.4 L 8.9 L (12.0-16.0) g/dL Hct 26.6 L 28.5 L 27.0 L (37-47) % Plt Count 256 288 269 (130-400) K/uL BMP 03/10/18 07:02 Sodium 137 Potassium 3.9 Chloride 102 Carbon Dioxide 27 BUN 17 Creatinine 0.82 Glucose 145 H Calcium 8.5 Liver Function 03/10/18 Range/Units 07:02 Total Bilirubin 0.8 D (0.1-1) mg/dl AST 11 L (15-37) U/L ALT 17 (12-78) U/L Alkaline Phosphatase 65 (45-117) U/L Albumin 2.9 L (3.4-5.0) gm/dl Medications Administered Current Inpatient Medications Acetaminophen (Tylenol) 650 mg PO Q4H PRN PRN Reason: Pain or Fever Stop: 04/08/18 19:03 Al Hydrox/Mg Hydrox/Simethicone (Maalox) 15 ml PO Q4H PRN PRN Reason: Dyspepsia Stop: 04/08/18 19:03 Aspirin (Ecotrin) 81 mg PO DAILY BILL Stop: 04/09/18 10:29 Last Admin: 03/10/18 11:37 Dose: 81 mg Dextrose (Dextrose 50%) 25 - 50 ml IV UD PRN; Protocol PRN Reason: Hypoglycemia Protocol Stop: 04/08/18 19:03 Ezetimibe (Zetia) 10 mg PO DAILY BILL Stop: 04/09/18 08:59 Last Admin: 03/10/18 08:15 Dose: 10 mg Furosemide (Lasix) 20 mg IV ONCE BILL Stop: 04/08/18 17:29 Last Admin: 03/10/18 00:01 Dose: 20 mg Glucagon (Glucagen) 1 mg SQ UD PRN; Protocol PRN Reason: Hypoglycemia Protocol Stop: 04/08/18 19:03 Glucose (Dex4 Glucose) 4 - 8 tabs PO UD PRN; Protocol PRN Reason: Hypoglycemia Protocol Stop: 04/08/18 19:03 Glucose (Glucose 40%) 15 - 30 gm PO UD PRN; Protocol PRN Reason: Hypoglycemia Protocol Stop: 04/08/18 19:03 Sodium Chloride (Nss 250ml) 250 mls @ 15 mls/hr IV .[id number] PRN PRN Reason: For Transfusion Stop: 04/08/18 19:03 Pantoprazole Sodium 40 mg/ (Syringe) 10 mls @ 5 mls/min IV BID BILL Stop: 04/09/18 20:59 Insulin Aspart (Novolog Flexpen) 0 units SC ACHS BILL Stop: 04/08/18 19:03 Last Admin: 03/10/18 11:38 Dose: 6 units Insulin Glargine (Lantus Solostar Pen) 5 units SC Q12H BILL Stop: 04/08/18 20:59 Last Admin: 03/10/18 08:14 Dose: 5 units Lisinopril (Zestril) 5 mg PO DAILY BILL Stop: 04/09/18 08:59 Last Admin: 03/10/18 08:15 Dose: 5 mg Magnesium Hydroxide (Milk Of Magnesia) 30 ml PO Q12H PRN PRN Reason: Constipation Stop: 04/08/18 19:03 Magnesium Oxide (Mag-Ox) 400 mg PO DAILY BILL Stop: 04/09/18 08:59 Last Admin: 03/10/18 08:15 Dose: 400 mg Miscellaneous (Carbohydrates For Hypoglycemia) 15 - 30 gm PO UD PRN PRN Reason: Hypoglycemia Treatment Stop: 04/08/18 19:03 Ondansetron HCl (Zofran) 4 mg IV Q6H PRN PRN Reason: Nausea Stop: 04/08/18 19:03 Polyethylene Glycol (Miralax Powder Packet) 17 gm PO DAILY PRN PRN Reason: Constipation Stop: 04/08/18 19:03 Vitamin D (Vitamin D3) 1,000 units PO DAILY BILL Stop: 04/09/18 08:59 Last Admin: 03/10/18 08:15 Dose: 1,000 units _ (1) Anemia Anemia type: other cause Iron deficiency anemia type: Vitamin B12 deficiency anemia type: Folate deficiency anemia type: Bone marrow failure anemia type: Hemolytic anemia type: Other causes of anemia: acute posthemorrhagic Chronic kidney disease stage: Qualified Code(s): D62 - Acute posthemorrhagic anemia (2) T2DM (type 2 diabetes mellitus) Diabetes mellitus assisted insulin use: without assisted use Diabetes mellitus complication status: without complication Diabetes mellitus complication detail: Diabetic retinopathy severity: Proliferative retinopathy type: Diabetes mellitus macular edema: Laterality: Chronic kidney disease stage: Qualified Code(s): E11.9 - Type 2 diabetes mellitus without complications (3) HLD (hyperlipidemia) Hyperlipidemia type: unspecified Qualified Code(s): E78.5 - Hyperlipidemia, unspecified
[2018-03-10] MEDS: PANTOprazole 40 MG in SYRINGE 0 ML IV SCH (21:33)
[2018-03-11 05:41] LABS: Estimated Average Glucose 134 mg/dl
[2018-03-11 07:18] LABS: Basophils # (auto) 0.03 K/uL (0-0.2); Basophils % (auto) 0.5 %; Eosinophils # (auto) 0.14 K/uL (0-0.5); Eosinophils % (auto) 2.3 %; Hematocrit (blood only) 25.7 % (37-47); Hemoglobin 8.5 g/dL (12.0-16.0); Immature Granulocytes # (auto) 0.01 K/uL (0.00-0.02); Immature Granulocytes % (auto) 0.2 %; Lymphocytes # (auto) 1.91 K/uL (1.2-3.4); Lymphocytes % (auto) 31.9 %; Mean Corpuscular Hgb Conc 33.1 g/dL (32-36); Mean Corpuscular Volume 88.9 fL (80-100); Mean Platelet Volume 8.9 fL (7.4-10.4); Monocytes % (auto) 11.7 %; Neutrophils # (auto) 3.19 K/uL (1.4-6.5); Neutrophils % (auto) 53.4 %; Platelet Count 255 K/uL (130-400); RDW Coefficient of Variation 16.7 % (11.5-14.5); RDW Standard Deviation 53.8 fL (36.4-46.3); Red Blood Count 2.89 M/uL (4.2-5.4); White Blood Count 5.98 K/uL (4.8-10.8)
[2018-03-11 07:50] LABS: BUN Creatinine Ratio 19.2 (10-20); Calcium 8.6 mg/dl (8.5-10.1); Creatinine Clr Calc Pharmacy 82.6 ml/min; Est GFR (African American) 98.5; Hypochromasia Present; Polychromasia 1+; Potassium 4.2 mmol/L (3.5-5.1)
[2018-03-11] MEDS: INSULIN ASPART 100 UNITS/ML 3 ML PEN SC SCH ×2 (08:04→13:15)
[2018-03-11] MEDS: PANTOprazole 40 MG in SYRINGE 0 ML IV SCH (08:47)
[2018-03-11] MEDS: CHOLECALCIFEROL 1,000 UNITS TAB PO SCH (08:47)
[2018-03-11] MEDS: MAGNESIUM OXIDE 400 MG TAB PO SCH (08:47)
[2018-03-11] MEDS: LISINOPRIL 5 MG TAB PO SCH (08:47)
[2018-03-11] MEDS: INSULIN GLARGINE SOLOSTAR 100 UNITS/ML 3 ML PEN SC SCH (08:48)
--- NOTE | 2018-03-11 11:55 | Anesthesiology Consultation ---
Date of Service March 11, 2018 Assessment & Plan Chart Review Chart Review: Acceptable Risk for Surgery and Patient NOT seen in Pre Admission Testing Consults Requested none ASA ASA4 Proposed Anesthesia Anesthesia Type: MAC Risk / Benefits Reviewed With: PT / POA / Parent / Guardian, Accepts Plan and Informed Consent Obtained NPO Date Last Intake of Fluids: 03/11/18 Time Last Intake of Fluids: 08:45 Date Last Intake of Solids: 03/09/18 Time Last Intake of Solids: 18:00 History Surgery Operation Date: 03/11/18 11:30 Proposed Procedures p Esophagogastroduodenoscopy Dr Jacky Shukla Height/Weight Height: 5 ft 3 in Weight: 93.9 kg Allergies Allergy/AdvReac Type Severity Reaction Status Date / Time Penicillins Allergy Swelling Unverified 03/09/18 14:50 of Lip/Tongue/Throat Aijhmmh-Wjy-Cwm Reductase Allergy Unknown Unverified 03/09/18 14:50 Inhibitor STEROID AdvReac Anxiety Uncoded 03/09/18 14:50 Medications Home Medications Medication Instructions Recorded Confirmed Last Taken alpha lipoic acid 50 mg PO DAILY 03/09/18 03/09/18 03/09/18 aspirin [Aspirin Low Dose] 81 mg PO DAILY 03/09/18 03/09/18 03/09/18 cholecalciferol (vitamin D3) 1,000 unit PO DAILY 03/09/18 03/09/18 03/09/18 [Vitamin D3] clopidogrel [Plavix] 75 mg PO DAILY 03/09/18 03/09/18 Unknown ezetimibe [Zetia] 10 mg PO DAILY 03/09/18 03/09/18 03/09/18 glimepiride 4 mg PO DAILY 03/09/18 03/09/18 03/09/18 lisinopril 5 mg PO DAILY 03/09/18 03/09/18 03/09/18 magnesium oxide 400 mg PO DAILY 03/09/18 03/09/18 03/09/18 pioglitazone [Actos] 15 mg PO DAILY 03/09/18 03/09/18 03/09/18 Active Medications Generic Name Dose Route Start Last Admin Trade Name Freq PRN Reason Stop Dose Admin Aspirin 81 mg 03/10/18 10:30 03/10/18 11:37 Ecotrin PO 04/09/18 10:29 81 mg DAILY BILL Administration Ezetimibe 10 mg 03/10/18 09:00 03/10/18 08:15 Zetia PO 04/09/18 08:59 10 mg DAILY BILL Administration Furosemide 20 mg 03/09/18 17:30 03/10/18 00:01 Lasix IV 04/08/18 17:29 20 mg ONCE BILL Administration Pantoprazole Sodium 40 mg/ 10 mls @ 5 mls/min 03/10/18 21:00 03/11/18 08:47 Syringe IV 04/09/18 20:59 5 mls/min BID BILL Administration Insulin Aspart 0 units 03/09/18 19:04 03/11/18 08:04 Novolog Flexpen SC 04/08/18 19:03 Not Given ACHS BILL Insulin Glargine 5 units 03/09/18 21:00 03/11/18 08:48 Lantus Solostar Pen SC 04/08/18 20:59 5 units Q12H BILL Administration Lisinopril 5 mg 03/10/18 09:00 03/11/18 08:47 Zestril PO 04/09/18 08:59 5 mg DAILY BILL Administration Magnesium Oxide 400 mg 03/10/18 09:00 03/11/18 08:47 Mag-Ox PO 04/09/18 08:59 400 mg DAILY BILL Administration Vitamin D 1,000 units 03/10/18 09:00 03/11/18 08:47 Vitamin D3 PO 04/09/18 08:59 1,000 units DAILY BILL Administration Beta Jaydon Beta Jaydon Taken Within 24 Hours: No Past Medical History Medical History Left carotid artery stenosis History of ovarian cancer (Chronic) 2015 s/p GENET BSO HLD (hyperlipidemia) (Chronic) T2DM (type 2 diabetes mellitus) (Chronic) Morbid obesity Ovarian cancer (Resolved) Past Family History Family History Other Family history non-contributory No history of gastrointestinal disorder Past Surgical History Surgical History History of partial thyroidectomy (Resolved) History of Carlos-en-Y gastric bypass (Chronic) History of total abdominal hysterectomy and bilateral salpingo-oophorectomy ( Resolved) History of arthroscopy of knee (Resolved) History of tonsillectomy and adenoidectomy (Resolved) History of cataract extraction (Resolved) Past Anesthesia History No Hx of Anesthesia Complications and No Family Hx of Anesthesia Complications History of PONV No Motion Sickness Screening History of Motion Sickness: No Social History Smoking Status: Never smoker Hx Alcohol Use: No Hx Substance Use: No Exercise / Class Metabolic Activity III < 4 Walking/Shop/Light housework Physical Exam Vital Signs Last Vital Signs Temp 36.8 C 03/11/18 11:35 Pulse 75 03/11/18 11:35 Resp 16 03/11/18 11:35 BP 161/74 H 03/11/18 11:35 Pulse Ox 99 03/11/18 11:35 ENMT Mouth: no dentition abnormality Thyromental Distance: > or= 3.5 Finger Breadths Mallampati Class: II Neck normal visual inspection and trachea midline; neck extension not limited Respiratory normal respiratory effort Auscultation: lungs clear to auscultation bilaterally Cardiovascular Rate/Rhythm: regular rate and regular rhythm Heart Sounds: + murmur Vessels: + carotid bruit (left carotid bruits) Neurologic moves all extremities Motor/Sensory: + sensory deficit (dibetic P.N. feet,mild) Psychiatric Orientation: alert and oriented x 3 Testing Electrocardiogram Date: 03/09/18 Findings: + NSR @ (at 87,LAD) Chest X-Ray Date: 03/09/18 Findings: + NAD and + atherosclerosis of thoracic aorta Laboratory Results 03/11/18 06:56 03/11/18 06:56 Blood Type A Negative 03/09/18 15:24 Antibody Screen NEGATIVE 03/09/18 15:24 Hemoglobin A1c 6.3 % (4.5-5.6) H 03/10/18 07:02 03/11/18 03/11/18 11:25 07:07 POC Glucose 119 H 119 H
[2018-03-11] MEDS ORDERED: ePHEDrine sulfate 50 MG/ML AMP IV PRN (12:01)
[2018-03-11] MEDS ORDERED: ATROPINE SULFATE 0.1 MG/ML 5ML SYR IV PRN (12:01)
[2018-03-11] MEDS ORDERED: PROPOFOL IV EMULSION 10 MG/ML 20 ML VIAL IV ONE (12:07)
[2018-03-11] MEDS ORDERED: LIDOCAINE HCL 2% 2 ML VIAL/AMP(20MG/ML) INFIL ONE (12:07)
--- NOTE | 2018-03-11 12:13 | History & Physical Bridge Note ---
Date of Service March 11, 2018 History & Physical Bridge Note I have examined the patient, reviewed the History & Physical and in the interval since the performance of the History & Physical I have noted the following changes of clinical significance: no changes noted
--- NOTE | 2018-03-11 12:47 | GI REPORT ---
Patient Name: Rosie Garcia Procedure Date: 03/11/2018 12:13 PM Date of : 1950 Admit Type: Inpatient Age: 67 Gender: Female Attending MD: Savanah Shukla MD Procedure: Upper GI endoscopy Providers: Savanah Shukla MD Referring MD: Taylor Benitez Indications: Acute post hemorrhagic anemia, Melena Medicines: See the Anesthesia note for documentation of the administered medications Complications: No immediate complications. Estimated Blood Loss: Estimated blood loss: none. Procedure: Pre-Anesthesia Assessment: - ASA Grade Assessment: III - A patient with severe systemic disease. After obtaining informed consent, the endoscope was passed under direct vision. Throughout the procedure, the patient's blood pressure, pulse, and oxygen saturations were monitored continuously. The Endoscope was introduced through the mouth, and advanced to the afferent and efferent jejunal loops. The upper GI endoscopy was accomplished without difficulty. The patient tolerated the procedure well. Findings: The GE junction was at 35 cm. There was a linear erosion > 5mm at the GE junction. There was a mild ring at the GE junction. There was a small hiatal hernia noted on retroflexion. A few gastric polyps were seen in the body of the stomach. There was an unremarkable gastro-enteric anastamosis. No anastamotic ulcer was seen. The small intestine was deeply intubated, and was normal. Biopsies taken from stomach and from small intestine. Impression: - LA Grade B reflux esophagitis. - Unremarkable post gastric bypass anatomy. It may be possible that esophagitis is the cause of pt's anemia. Would defer further w/u and follow Hgb as outpt. Recommendation: - Discharge patient to home. Follow up with PCP. - Consider IV iron - this can be arranged as an outpt. - Oral BID PPI x 2 weeks, then once daily. - Diet as tolerated. - She is at low risk for continued bleeding - please continue ASA, and resume Plavix on Friday. Savanah Shukla M.D. Savanah Shukla MD 03/11/2018 12:46:34 PM This report has been signed electronically. Note Initiated On: 03/11/2018 12:13 PM Number of Addenda: 0 I attest to the content of the Intraoperative Record and orders documented therein, exceptions below {[id number]}
--- NOTE | 2018-03-11 12:47 | Hospitalist Progress Note ---
Date of Service March 11, 2018 Assessment & Plan (1) Upper GI bleed: This is a 67-year-old white female with significant past medical history of T2 DM, HLD, history of gastric bypass 2010, history of ovarian CA 2015 who presents to [facility] at the recommendation of her encephalographer secondary to abnormal lab work. Hemoglobin today was 6.1 in outpatient setting. store sales manager, Dr. Ro advised patient seek ED. She is traveling to [place] from [place], [place] for holidays. H/H on arrival was 5.6/17.7. FOBT +. She was ordered 3 units of PRBC for transfusion. Likely bleeding from upper GI secondary to anastomotic ulcer and/or peptic ulcer disease Clinically a lot better Received 3 units of PRBC Denies any symptoms Appreciate GI input and recommendation Continue Protonix drip and EGD tomorrow Status post EGD; showed mild esophagitis Advised Protonix twice daily for 2 weeks and then daily oral iron for now Advised to have IV iron as an outpatient Will discharge home today (2) Anemia: -Plan as above -H/H 5.6/17.7 -H/H q4hr -3 units PRBC ordered -Hemoglobin more than 9 this morning -No active source of bleeding in EGD (3) Left carotid artery stenosis: -recently diagnosed, following Dr. Ro [facility] interventional cardiology -to undergo eventual intervention -recently placed on Plavix/ASA (plavix initiated 03/02, ASA initiated 02/23); on hold now -continue zetia -We will continue aspirin for now and Plavix from Friday (4) T2DM (type 2 diabetes mellitus): -A1C in a.m, patient notes last A1C 11/2017 6.8-7.0 -hold actos, glimepride -Lantus/Novolog per protocol -on lisinopril for renal protection- Hemoglobin A1c is pending (5) Elevated blood pressure reading: -blood pressure consistently 140-160 in ED -may be in setting of GIB/anxiety -she denies hx of HTN, on MADELYN for T2DM -monitor blood pressure accordingly, goal for patient is 130/80 given T2DM (6) HLD (hyperlipidemia): -continue zetia (7) DVT prophylaxis: -SCDS/TEDS -hold ASA/Plavix in setting of GIB Disposition: D/C to home when medically able Follow up: with PCP Dr. Hubbard upon discharge and encephalographer Dr. Ro of [facility] Subjective 67-year-old obese female with history of gastric bypass surgery and recent diagnosis of left carotid stenosis on aspirin and Plavix has been here with the increasing weakness and melena for the last few days. 03/10 Patient was seen and examined in telemetry unit She is a status post 3 unit of PRBC transfusion Has been feeling a lot better following transfusion Will have EGD tomorrow 03/11 Patient was seen and examined in telemetry unit Denies any symptoms and her hemoglobin remains stable Status post EGD which showed esophagitis Can be discharged as per GI Physical Exam 2 Vital Signs (Past 24 Hours): Last Vital Signs Temp 36.8 C 03/11/18 11:35 Pulse 75 03/11/18 11:35 Resp 16 03/11/18 11:35 BP 161/74 H 03/11/18 11:35 Pulse Ox 99 03/11/18 11:35 Constitutional: WD/WN, vitals as above Respiratory: Auscultation: lungs clear to auscultation bilaterally and + diminished lung sounds Cardiovascular: Rate/Rhythm: regular rate and regular rhythm Heart Sounds: normal S1 and normal S2 Gastrointestinal (Abdomen): normal bowel sounds, soft, nontender, no hepatosplenomegaly Neurologic: Alert, awake and oriented x3 _ (1) Anemia Anemia type: other cause Iron deficiency anemia type: Vitamin B12 deficiency anemia type: Folate deficiency anemia type: Bone marrow failure anemia type: Hemolytic anemia type: Other causes of anemia: acute posthemorrhagic Chronic kidney disease stage: Qualified Code(s): D62 - Acute posthemorrhagic anemia (2) T2DM (type 2 diabetes mellitus) Diabetes mellitus snf insulin use: without terminal gauger use Diabetes mellitus complication status: without complication Diabetes mellitus complication detail: Diabetic retinopathy severity: Proliferative retinopathy type: Diabetes mellitus macular edema: Laterality: Chronic kidney disease stage: Qualified Code(s): E11.9 - Type 2 diabetes mellitus without complications (3) HLD (hyperlipidemia) Hyperlipidemia type: unspecified Qualified Code(s): E78.5 - Hyperlipidemia, unspecified
--- NOTE | 2018-03-11 12:57 | Anesthesiology Progress Note ---
Date of Service March 11, 2018 Anesthesia Post Procedure Vital Signs Vital Signs: Temp Pulse Pulse Resp BP BP Pulse Ox 03/11/18 12:50 74 16 142/68 H 100 03/11/18 11:35 36.8 C 75 16 161/74 H 99 03/11/18 11:08 36.8 C 79 20 129/71 97 03/11/18 07:33 77 03/11/18 07:30 36.6 C 64 18 133/72 97 03/11/18 03:27 36.5 C 73 16 122/68 98 03/11/18 00:21 36.7 C 72 18 118/69 97 03/10/18 19:21 36.8 C 62 18 126/75 99 03/10/18 15:29 37.1 C 66 16 126/69 97 03/10/18 15:00 68 Notes Mental Status: alert / awake / arousable Patient Amnestic to Procedure: Yes Nausea / Vomiting: adequately controlled Pain: adequately controlled Airway Patency, RR, SpO2: stable & adequate BP & HR: stable & adequate Hydration State: stable & adequate Anesthetic Complications: no major complications apparent
[2018-03-11] MEDS: EZETIMIBE 10 MG TABLET PO SCH (13:31)
[2018-03-11] MEDS: ASPIRIN 81 MG ECTAB PO SCH (13:31)
[2018-03-11] MEDS ORDERED: FERROUS SULFATE 325 MG TAB PO SCH (17:00)
[2018-03-11] MEDS ORDERED: PANTOprazole 40 MG TAB PO SCH (21:00)
--- NOTE | 2018-03-12 08:17 | Discharge Summary ---
Date of Service March 12, 2018 Admission HPI Per Admitting Provider This is a 67-year-old white female with significant past medical history of T2 DM, HLD, history of gastric bypass 2010, history of ovarian CA 2015 who presents to [facility] at the recommendation of her coremaker apprentice secondary to abnormal lab work. Patient resides in [place], [place] and has recently been followed by coremaker apprentice Dr. Ro secondary to left carotid artery stenosis. She is currently undergoing workup for KATHARINE intervention. Approximately 1 week ago patient was placed on Plavix 75 mg daily, ASA 325 mg daily. After 2 days of low-dose aspirin her dose was reduced to 81 mg daily. Patient was in her normal state of health until 03/05 when she developed diarrhea times 2 days, noted stools to be, "dark." After development of diarrhea she began experiencing increasing fatigue, exhaustion with simple activity, SALDAÑA, lightheadedness with standing, decreased appetite, melena. Due to symptoms she contact her labor standards director who ordered a CBC for her today. Her hemoglobin was noted to be 6.1 and she received a call from her labor standards director and urged her to seek ED. Patient currently is visiting family in [facility]. She denies any fever, chills, sweats, syncope, chest pain, palpitations, shortness breath at rest, hemoptysis, nausea, vomiting, abdominal pain, dysuria, increased urgency or frequency with urination, hematuria, hematochezia. is at bedside. Follows closely with her supervisor dried yeast regularly given gastric bypass. No hx of EGD but colonoscopy was done 07/2017 WNL. Admission Exam Per Admitting Provider Vital Signs (Past 24 Hours): Last Vital Signs Temp 36.5 C 03/09/18 13:00 Pulse 87 03/09/18 15:30 Resp 16 03/09/18 15:30 BP 144/64 H 03/09/18 15:00 Pulse Ox 100 03/09/18 15:30 Physical Exam: Gen: WD/WN, F, NAD, sitting up in bed, pleasant, conversing easily Head: Normocephalic, Atraumatic Eyes: Sclera normal, no conjunctival injection, PERRLA, EOMI ENT: Gross hearing intact, normal pharynx, mucous membranes moist Neck: supple, no adenopathy, No JVD, no bruit, no thyromegaly, Resp: Clear to auscultation b/l, no wheeze, rales, rhonchi. 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 Extremities: No edema bilaterally, bilateral +2 pedal pulse Skin: warm, moist, no rash, negative turgor, cap refill < 2sec Neuro: Alert and oriented x 3, speech normal, good mood/affect, cran nerve 2-12 intact grossly : deferred Principal Diagnosis Acute blood loss anemia, upper GI bleed, grade B reflux esophagitis on EGD Discharge Exam Constitutional WD/WN, vitals as above Respiratory Auscultation: lungs clear to auscultation bilaterally and + diminished lung sounds Cardiovascular Rate/Rhythm: regular rate and regular rhythm Heart Sounds: normal S1 and normal S2 Gastrointestinal (Abdomen) normal bowel sounds, soft, nontender, no hepatosplenomegaly Discharge Data Allergies Allergy/AdvReac Type Severity Reaction Status Date / Time Penicillins Allergy Swelling Unverified 03/09/18 14:50 of Lip/Tongue/Throat Iqtpnux-Ccg-Gdk Reductase Allergy Unknown Unverified 03/09/18 14:50 Inhibitor STEROID AdvReac Anxiety Uncoded 03/09/18 14:50 Consultations 03/09/18 15:57 ED Decision to Admit Stat 03/09/18 16:16 Consult Gastroenterology Routine Procedures Performed Operation Date: 03/11/18 11:30 Actual Procedures p EGD Biopsy Cytology - [facility] Course (1) Upper GI bleed: This is a 67-year-old white female with significant past medical history of T2 DM, HLD, history of gastric bypass 2010, history of ovarian CA 2015 who presents to [facility] at the recommendation of her coremaker apprentice secondary to abnormal lab work. Hemoglobin today was 6.1 in outpatient setting. roll table operator, Dr. Ro advised patient seek ED. She is traveling to [place] from [place], [place] for holidays. H/H on arrival was 5.6/17.7. FOBT +. She was ordered 3 units of PRBC for transfusion. Likely bleeding from upper GI secondary to anastomotic ulcer and/or peptic ulcer disease Clinically a lot better Received 3 units of PRBC Denies any symptoms Appreciate GI input and recommendation Continue Protonix drip and EGD tomorrow Status post EGD; showed mild esophagitis Advised Protonix twice daily for 2 weeks and then daily oral iron for now Advised to have IV iron as an outpatient Will discharge home today (2) Anemia: -Plan as above -H/H 5.6/17.7 -H/H q4hr -3 units PRBC ordered -Hemoglobin more than 9 this morning -No active source of bleeding in EGD (3) Left carotid artery stenosis: -recently diagnosed, following Dr. Ro [facility] interventional cardiology -to undergo eventual intervention -recently placed on Plavix/ASA (plavix initiated 03/02, ASA initiated 02/23); on hold now -continue zetia -We will continue aspirin for now and Plavix from Friday (4) T2DM (type 2 diabetes mellitus): -A1C in a.m, patient notes last A1C 11/2017 6.8-7.0 -hold actos, glimepride -Lantus/Novolog per protocol -on lisinopril for renal protection- Hemoglobin A1c is pending (5) Elevated blood pressure reading: -blood pressure consistently 140-160 in ED -may be in setting of GIB/anxiety -she denies hx of HTN, on MADELYN for T2DM -monitor blood pressure accordingly, goal for patient is 130/80 given T2DM (6) HLD (hyperlipidemia): -continue zetia (7) DVT prophylaxis: -SCDS/TEDS -hold ASA/Plavix in setting of GIB Disposition: D/C to home when medically able Follow up: with PCP Dr. Hubbard upon discharge and coremaker apprentice Dr. Ro of [facility] Total Time Total Time Spent Total Time Spent (In Minutes): 35 minutes Total Time Includes: Examination of the Patient, Discharge Planning, Medication Reconciliation and Communication With Other Providers Discharge Plan Discharge Items Patient Disposition: Home - Self-Care Reason For Visit: GI BLEED Discharge Diagnosis: Acute blood loss anemia, upper GI bleed, grade B reflux esophagitis on EGD Condition: Good Discharge Goals: Decrease discomfort, Improve disease control and Improve function Non-emergency contact: Primary Care Provider Call non-emergency contact if: you have any medication questions and your symptoms worsen Follow-up/Referrals: [Primary Care Provider] - (Please make an appointment with your primary care provider in 1 week and regular follow-up with your labor standards director) Diet: Heart Healthy Addtl Provider Instructions: Please consider intravenous iron as an outpatient Prescriptions: New pantoprazole 40 mg Tablet,Delayed Release (Dr/Ec) 40 mg PO BID 30 Days Qty: 60 RF: 0 ferrous sulfate 325 mg (65 mg iron) Tablet,Delayed Release (Dr/Ec) 325 mg PO BIDM 30 Days Qty: 60 RF: 0 Continue aspirin [Aspirin Low Dose] 81 mg Tablet,Delayed Release (Dr/Ec) 81 mg PO DAILY RF: 0 pioglitazone [Actos] 15 mg Tablet 15 mg PO DAILY RF: 0 alpha lipoic acid 50 mg Capsule 50 mg PO DAILY RF: 0 clopidogrel [Plavix] 75 mg Tablet 75 mg PO DAILY RF: 0 glimepiride 4 mg tablet 4 mg PO DAILY RF: 0 lisinopril 5 mg Tablet 5 mg PO DAILY RF: 0 cholecalciferol (vitamin D3) [Vitamin D3] 1,000 unit Capsule 1,000 unit PO DAILY RF: 0 ezetimibe [Zetia] 10 mg Tablet 10 mg PO DAILY RF: 0 magnesium oxide 400 mg Capsule 400 mg PO DAILY RF: 0 Visit Report Forms: My [facility] [employer] Portal Stand-Alone Forms: My [facility] [employer]/Other Patient Handouts: Pantoprazole Sodium Gastro-resistant tablet, Polysaccharide-Iron Complex Heme Iron Polypeptide Bovine Oral tablet, Bleeding Gastrointestinal, Esophagitis, Anemia Iron Deficiency Ch Discharge Orders: Discharge Order (Routine); Ordered 03/11/18 Ordered By: Taylor Benitez Admission Data Admit Date/Time: 03/09/18 16:24 Attending Provider: Taylor Benitez Admit Provider: Clarence Reynolds Other Providers: Savanah Shukla Robin A Service: Telemetry Other Interventions: Discharge Summary Assessment (RN) Last Done: 03/11/18 13:44 DC Date/Time DO NOT enter until pt leaves facility: 03/11/18 14:38
--- NOTE | 2018-03-16 07:08 | Coding Query ---
CODING QUERY To promote full compliance with coding requirements relating to patient care, provider participation is requested in all cases of stove polisher uncertainty. Please assist us with the question(s) below: Coding Question(s): There is documentation in the record of the patient recently being placed on Plavix and Aspirin and the H&P documents, " r/o GI bleed in the setting of ASA and Plavix use". Please specify below, in your clinical opinion. ( + ) The GI Bleeding was likely due to the Plavix and Aspirin provoking a hemorrhagic disorder ( ) The GI Bleeding was NOT likely due to the Plavix and Aspirin provoking a hemorrhagic disorder Physician's Response(s): Thank you Merry Encarnacion Principal Diagnosis: "that condition established after study, to be chiefly responsible for occasioning the admission of the patient to the hospital for care." Co-Existing Principal Diagnosis: "when two or more diagnoses equally meet the criteria for principal diagnosis as determined by the circumstances of admission , diagnostic work up, and/or therapy provided, and the Alphabetic Index, Tabular List, or another coding guideline does not provide sequencing direction , any one of the diagnoses may be sequenced first." "When the physician has documented what appears to be a current diagnosis in the body of the record, but has not included the diagnosis in the final diagnostic statement, the physician should be asked whether the diagnosis should be added." (Source Coding Clinic 2 QTR90. p3-4) NAYELI
== END 2018-03-11 14:38 | disposition home or self-care (01) | DRG 813 ==
LOC: ED 12:56 → SUATTDRO 16:24 → 2S 16:24